=== PATIENT | male | born 1955 | race Caucasian/White ===

== ENCOUNTER 2022-12-22 14:56 | Emergency (ER) | payer OTHER ==
[2022-12-22 16:02] LABS: Potassium 4.2 mmol/L (3.5-5.1); Troponin High Sensitivity 4.8 pg/mL (<58.9)
[2022-12-22 16:06] LABS: Absolute Lymphocytes (CBC) 2.7 K/uL (0.7-4.9); Hematocrit 42.9 % (39.6-49.0); MCV 97.8 fL (80-100); MPV 8.6 fL (7.6-11.3); RBC Red Blood Cell Count 4.39 M/uL (4.33-5.43)
--- NOTE | 2022-12-22 16:36 | RAD REPORT ---
EXAM DESCRIPTION: CT - Chest For Pe Angio - 12/22/2022 4:24 pm CLINICAL HISTORY: Chest pain COMPARISON: None. TECHNIQUE: Dynamically enhanced axial 3 mm thick images of the chest were obtained during administra tion of 100 mL Isovue 370 IV contrast. Coronal and oblique reconstruction images were generated and r eviewed. Exam utilizes a protocol for optimal evaluation of pulmonary arterial tree. Maximum intensity projections 3D imaging was utilized All CT scans are performed using dose optimization technique as appropriate and may include automated exposure control or mA/KV adjustment according to patient size. FINDINGS: A pulmonary embolus is not seen. A thoracic aortic aneurysm is not noted. A pleural effusion is not seen. A pericardial effusion is not seen. A lung consolidation is not present. Mild right lower lobe atelectasis. Centrilobular emphysema IMPRESSION: Negative for a pulmonary embolism.
--- NOTE | 2022-12-22 16:37 | RAD REPORT ---
EXAM DESCRIPTION: Lanre Single View12/22/2022 3:31 pm CLINICAL HISTORY: Chest pain COMPARISON: none FINDINGS: The lungs are moderately hyperaerated. The lungs appear clear of acute infiltrate. The heart is normal size IMPRESSION: No acute abnormalities displayed
--- NOTE | 2022-12-22 18:02 | EDPHYS ---
Physician Documentation [facility] Name: Myles Verma Age: 67 yrs Sex: Male : 1955 Arrival Date: 12/22/2022 Time: 14:59 Bed 5 Private MD: ED Physician Denver Pham HPI: 12/22 17:48 This 67 yrs old Male presents to ER via EMS with complaints of Chest Pain. rn 17:48 The patient or guardian reports chest pain that is located primarily in the anterior rn chest wall. Onset: 2 month(s) ago. The pain radiates to Associated signs and symptoms: Pertinent positives: None. Pertinent negatives: abdominal pain, cough, diaphoresis, palpitations, shortness of breath, syncope, vomiting. The chest pain is described as sharp, stabbing. Duration: The patient or guardian reports multiple episodes, that are intermittent. Modifying factors: The symptoms are alleviated by nothing. the symptoms are aggravated by nothing. Severity of pain: At its worst the pain was mild in the emergency department the pain has improved. The patient has experienced similar episodes in the past. The patient has not recently seen a physician. Pt reports intermittent diffuse chest pain, sharp/stabbing, not worse with exertion or breathing. Reports sometimes worse with movement, + 50 year smoking history, no trauma. No fever. . Historical: - Allergies: 15:00 No Known Allergies; hb - PMHx: 15:00 CVA; hb - Immunization history:: Adult Immunizations up to date. - Social history:: Smoking status: Patient reports the use of cigarette tobacco products. - Family history:: not pertinent. - Hospitalizations: : No recent hospitalization is reported. ROS: 17:48 Constitutional: Negative for fever, chills, and weight loss, Eyes: Negative for injury, rn pain, redness, and discharge, Cardiovascular: Negative for palpitations, and edema Respiratory: Negative for shortness of breath, cough, wheezing Abdomen/GI: Negative for abdominal pain, nausea, vomiting, diarrhea, and constipation, MS/Extremity: Negative for injury and deformity, Skin: Negative for injury, rash, and discoloration, Neuro: Negative for headache, weakness, numbness, tingling, and seizure. Exam: 15:16 ECG was reviewed by the Attending Physician. rn 17:48 Constitutional: This is a well developed, well nourished patient who is awake, alert, rn and in no acute distress. Head/Face: Normocephalic, atraumatic. Cardiovascular: Regular rate and rhythm. No pulse deficits. Respiratory: No increased work of breathing, no retractions or nasal flaring. Abdomen/GI: Soft, non-tender Skin: Warm, dry MS/ Extremity: Pulses equal, no cyanosis. Neuro: Awake and alert, GCS 15 Vital Signs: 14:59 BP 128 / 88; Pulse 71; Resp 17; Temp 98.1; Pulse Ox 100% on R/A; Weight 65.77 kg; hb Height 5 ft. 8 in. (172.72 cm); Pain 2/10; 15:05 BP 127 / 88; Pulse 72; Resp 18; Pulse Ox 98% on R/A; ld1 15:53 BP 116 / 82; Pulse 68; Resp 18; Pulse Ox 97% on R/A; ld1 17:00 BP 116 / 85; Pulse 66; Resp 15; Pulse Ox 99% ; hb 18:01 BP 114 / 77; Pulse 68; Resp 17; Pulse Ox 99% on R/A; hb 14:59 Body Mass Index 22.05 (65.77 kg, 172.72 cm) hb MDM: 15:00 Patient medically screened. rn 17:48 Differential diagnosis: acute myocardial infarction, acute pericarditis, anxiety, rn coronary artery disease chest wall pain, costochondritis, esophagitis, gastritis, pericarditis, pleurisy, pneumothorax, pulmonary embolus, stable angina, thoracic aortic disection. HEART Score: History: Moderately Suspicious (1), ECG: Normal (0), Age: > or = 65 years (2), Risk Factors: 1 or 2 risk factors (1), Troponin: < or = 1 x Normal Limit (0), Total Score = 4. The patient was not given aspirin in the Emergency Department. Administered by EMS. Data reviewed: vital signs, nurses notes, lab test result(s), EKG, radiologic studies, plain films, and as a result, I will admit patient. Consideration of Admission/Observation Patient was admitted/placed on observation. Counseling: I had a detailed discussion with the patient and/or guardian regarding: the historical points, exam findings, and any diagnostic results supporting the discharge/admit diagnosis, lab results, radiology results, the need for further work-up and treatment in the hospital. Response to treatment: the patient's symptoms have resolved after treatment, the patient's condition has returned to base line, the patient is now symptom free, and as a result, I will discharge patient. ED course: Pt with some risk for CAD, I prefer to admit/obs for chest pain w/u, patient would like to go home, understands risks and benefits, and chooses to be discharged with cardiology f/u. CT PE neg for PE. . 12/22 15:03 Order name: Basic Metabolic Panel; Complete Time: 16:09 hb 12/22 15:03 Order name: CBC with Diff; Complete Time: 17:09 hb 12/22 15:03 Order name: Troponin HS; Complete Time: 16: hb 12/22 15:03 Order name: XRAY Chest (1 view); Complete Time: 17: hb 12/22 15:09 Order name: BNP; Complete Time: 16: rn 12/22 15:09 Order name: CT Chest For PE Angio; Complete Time: 17: rn 12/22 15:03 Order name: EKG; Complete Time: 15:04 hb 12/22 15:03 Order name: Cardiac monitoring; Complete Time: 15: hb 12/22 15:03 Order name: EKG - Nurse/Tech; Complete Time: 15: hb 12/22 15:03 Order name: IV Saline Lock; Complete Time: 15:29 hb 12/22 15:03 Order name: Labs collected and sent; Complete Time: 15:29 hb 12/22 15:03 Order name: O2 Per Protocol; Complete Time: 15: hb 12/22 15:03 Order name: O2 Sat Monitoring; Complete Time: 15:04 hb EC:16 Rate is 67 beats/min. Rhythm is regular. Right axis deviation noted. QRS is positive in rn lead aVF and negative in lead I. NC interval is normal. QRS interval is normal. QT interval is normal. No Q waves. T waves are Normal. No ST changes noted. Clinical impression: NSR w/ Non-specific ST/T Changes. Interpreted by me. Reviewed by me. Administered Medications: No medications were administered Disposition Summary: 12/22/22 18:01 Discharge Ordered Location: Home rn Problem: an ongoing problem rn Symptoms: have improved rn Condition: Stable rn Diagnosis - Chest pain, unspecified rn Followup: rn - With: Private Physician - When: As needed - Reason: Recheck today's complaints, Re-evaluation by your physician Discharge Instructions: - Discharge Summary Sheet rn - Nonspecific Chest Pain, Adult rn - Steps to Quit Smoking rn Forms: - Medication Reconciliation Form rn - Thank You Letter rn - Antibiotic chemistry intern - Prescription Opioid Use rn Signatures: Dispatcher [employer] EDDenver Smalls MD MD rn Baxter, Heather, RN RN hb Corrections: (The following items were deleted from the chart) 15:01 15:00 PMHx: Renal Insufficiency; hb hb
--- NOTE | 2022-12-22 18:02 | ER ---
Nurse's Notes [facility] Name: Myles Verma Age: 67 yrs Sex: Male : 1955 Arrival Date: 12/22/2022 Time: 14:59 Bed 5 Private MD: Diagnosis: Chest pain, unspecified Presentation: 12/22 14:59 Chief complaint: EMS states: Intermittent sharp substernal chest pain that radiates to hb left jaw x 3 days. Sent from [facility]. ASA 324 mg PO administered [employer]IAL [employer]SEUR. Coronavirus screen: At this time, the client does not indicate any symptoms associated with coronavirus-19. Ebola Screen: No symptoms or risks identified at this time. Initial Sepsis Screen: Does the patient meet any 2 criteria? No. Patient's initial sepsis screen is negative. Does the patient have a suspected source of infection? No. Patient's initial sepsis screen is negative. Risk Assessment: Do you want to hurt yourself or someone else? Patient reports no desire to harm self or others. Onset of symptoms was December 2022. 14:59 Method Of Arrival: EMS: [facility] 14:59 Acuity: ANIBAL 3 hb 15:03 Care prior to arrival: Medication(s) given: ASA, 325 mg. hb Triage Assessment: 15:00 General: Appears in no apparent distress. Behavior is calm, cooperative. Pain: Pain hb currently is 3 out of 10 on a pain scale. at worst was 9 out of 10 on a pain scale. EENT: No signs and/or symptoms were reported regarding the EENT system. Neuro: Level of Consciousness is awake, alert, obeys commands, Oriented to person, place, time, situation. Cardiovascular: Reports chest pain, Patient's skin is warm and dry. Respiratory: Respiratory effort is even, unlabored, Respiratory pattern is regular, symmetrical. GI: : No signs and/or symptoms were reported regarding the genitourinary system. Derm: Skin is pink, warm \T\ dry. Musculoskeletal: No signs and/or symptoms reported regarding the musculoskeletal system. Historical: - Allergies: 15:00 No Known Allergies; hb - PMHx: 15:00 CVA; hb - Immunization history:: Adult Immunizations up to date. - Social history:: Smoking status: Patient reports the use of cigarette tobacco products. - Family history:: not pertinent. - Hospitalizations: : No recent hospitalization is reported. Screenin:02 [facility] ED Fall Risk Assessment (Adult) Score/Fall Risk Level 0 - 2 = Low Risk hb Oriented to surroundings, Maintained a safe environment, Educated pt \T\ family on fall prevention, incl call for assistance when getting out of bed. Abuse screen: Denies threats or abuse. Denies injuries from another. Nutritional screening: No deficits noted. Tuberculosis screening: No symptoms or risk factors identified. Assessment: 15:02 General: See triage assessment. hb 15:53 Reassessment: Patient appears in no apparent distress at this time. Patient and/or hb family updated on plan of care and expected duration. Pain level reassessed. Patient is alert, oriented x 3, equal unlabored respirations, skin warm/dry/pink. 17:00 Reassessment: Patient appears in no apparent distress at this time. Patient and/or hb family updated on plan of care and expected duration. Pain level reassessed. Patient is alert, oriented x 3, equal unlabored respirations, skin warm/dry/pink. 18:01 Reassessment: Patient appears in no apparent distress at this time. Patient and/or hb family updated on plan of care and expected duration. Pain level reassessed. Patient is alert, oriented x 3, equal unlabored respirations, skin warm/dry/pink. Patient states feeling better. Vital Signs: 14:59 BP 128 / 88; Pulse 71; Resp 17; Temp 98.1; Pulse Ox 100% on R/A; Weight 65.77 kg; hb Height 5 ft. 8 in. (172.72 cm); Pain 2/10; 15:05 BP 127 / 88; Pulse 72; Resp 18; Pulse Ox 98% on R/A; ld1 15:53 BP 116 / 82; Pulse 68; Resp 18; Pulse Ox 97% on R/A; ld1 17:00 BP 116 / 85; Pulse 66; Resp 15; Pulse Ox 99% ; hb 18:01 BP 114 / 77; Pulse 68; Resp 17; Pulse Ox 99% on R/A; hb 14:59 Body Mass Index 22.05 (65.77 kg, 172.72 cm) hb ED Course: 14:59 Patient arrived in ED. hb 15:00 Denver Pham MD is Attending Physician. rn 15:00 Triage completed. hb 15:02 Patient has correct armband on for positive identification. hb 15:33 XRAY Chest (1 view) In Process Unspecified. EDMS 15:35 Initial lab(s) drawn, by me, sent to lab. Inserted saline lock: 20 gauge in left mm9 antecubital area, using aseptic technique. Blood collected. 15:36 Warm blanket given. Client placed on continuous cardiac and pulse oximetry monitoring. mm9 NIBP monitoring applied. lunchroom monitor on. Pulse ox on. NIBP on. 15:37 BNP Sent. mm9 15:37 Basic Metabolic Panel Sent. mm9 15:37 CBC with Diff Sent. mm9 15:37 Troponin HS Sent. mm9 15:53 Rochelle Scott, RN is Primary Nurse. hb 16:26 CT Chest For PE Angio In Process Unspecified. EDMS 18:44 No provider procedures requiring assistance completed. IV discontinued, intact, hb bleeding controlled, No redness/swelling at site. Administered Medications: No medications were administered Medication: 15:02 VIS not applicable for this client. hb Outcome: 18:01 Discharge ordered by . rn 18:44 Discharged to home ambulatory. hb 18:44 Condition: stable 18:44 Discharge instructions given to patient, Instructed on discharge instructions, follow up and referral plans. medication usage, Demonstrated understanding of instructions, follow-up care, medications. 18:45 Patient left the ED. hb Signatures: Dispatcher [employer] EDMS Denver Pham MD MD rn Baxter, Heather, RN RN Jennifer Casey RN RN Maddi Andersen mm9 Corrections: (The following items were deleted from the chart) 15:01 15:00 PMHx: Renal Insufficiency; hb hb
[2022-12-22 18:57] VITALS: TEMP 98.1
[2022-12-22 19:14] VITALS: O2SAT 99
[2022-12-22 19:15] VITALS: BP 114/77
== END 2022-12-22 18:45 | disposition home or self-care (01) ==
LOC: ER 14:56
DX: R07.89 Other chest pain (principal); Z86.73 Personal history of transient ischemic attack (TIA), and cerebral infarction without residual deficits; Z72.0 Tobacco use
CPT/HCPCS: 85025; 80048; 36415; 84484; 83880; 71275; 71045; 99284; Q9967; 93005

== ENCOUNTER 2022-12-25 09:30 | Observation (INO) | payer OTHER ==
--- OUTSIDE RECORDS SUMMARY | 2022-12-25 09:34 | XMS REPORT | Continuity of Care Document ---
:1955 Author Organization [facility] t Address [address] [place] [address] [address]. [address] [place] [address] Care Team Providers Name Role Phone Pcp, Patient Does Not Have A Primary Care Physician +[id number] MINDY SANTORO Attending Clinician Unavailable Mindy Santoro MD Attending Clinician Doctor Unassigned, [place] Attending Clinician Unavailable Lisandro Bobo CRNA Attending Clinician Devon Serra MD Attending Clinician Only, Adc Test Attending Clinician Unavailable Krystina Lynch Attending Clinician MINDY SANTORO Admitting Clinician Unavailable Mindy Santoro MD Admitting Clinician Payers Payer Name Policy Type Policy Number Effective Date Expiration Date Len REZA [id number] 2021 ADMINISTRATION 00:00:00 Problems Condition Condition Condition Status Onset Resolution Last Treating Co mments Source Name Details Category Date Date Treatment Clinician Date Non-recurr Non-recurr Disease Active Overview : Univers ent ent 08-17 Formattin ity of unilateral unilateral 00:00: g of this [place] inguinal inguinal 00 note Medica l hernia hernia might be Branch without without different obstructio obstructio from the n or n or original. gangrene gangrene Added automatic ally from request for surgery [id number] Allergies, Adverse Reactions, Alerts This patient has no known allergies or adverse reactions. Social History Social Habit Start Date Stop Date Quantity Comments Source History of tobacco Chews Tobacco Uni versity of use [facility] Exposure to Not sure University of SARS-CoV-2 (event) [facility] Alcohol intake 2021-10-10 2021-10-10 2 /d University of 00:00:00 00:00:00 [facility] Cigarettes smoked 2021-08-17 2021-08-17 Univers ity of current (pack per 00:00:00 00:00:00 ) - Reported Branch Tobacco use and 2021-08-17 2021-08-17 Former user Universi ty of exposure 00:00:00 00:00:00 [facility] Sex Assigned At [birth year] Universit y of 00:00:00 00:00:00 [facility] Smoking Status Start Date Stop Date Source Current some day smoker 2021-08-17 00:00:00 [facility] Medications Ordered Filled Start Stop Current Ordering Indication Dosage Frequency Signature Comments Components Source Medication Medication Date Date Medication? Clinician (SIG) Name Name No known 2020-11 No Univers medications - ity of 10:08: [address] Vital Signs Vital Name Observation Time Observation Value Comments Source Systolic blood 2021-10-10 16:08:00 132 mm[Hg] Univer sity of pressure [facility] Diastolic blood 2021-10-10 16:08:00 85 mm[Hg] Unive rsity of pressure [facility] Heart rate 2021-10-10 16:08:00 73 /min [facility] Body temperature 2021-10-10 16:08:00 36.67 [place] [facility] Respiratory rate 2021-10-10 16:08:00 20 /min [facility] Body height 2021-10-10 16:08:00 170.2 cm [facility] Body weight 2021-10-10 16:08:00 67.314 kg [facility] BMI 2021-10-10 16:08:00 23.24 kg/m2 [facility] Oxygen saturation in 2021-10-10 16:08:00 99 /min [facility] Arterial blood by [facility] Pulse oximetry Branch Procedures This patient has no known procedures. Encounters Start End Encounter Admission Attending Care Care Encounter Source Date/Time Date/Time Type Type Clinicians Facility Department ID 2021-09-20 Outpatient HAN PINTO YANE [id number] Univers 03:05:50 MINDY esparza [facility] 2021-10-10 2021-10-10 [facility] [id number] Univers 10:00:00 10:12:42 MINDY esparza [facility] 2021-10-10 2021-10-10 Office [facility] [id number] Univers 09:43:39 10:12:42 Visit Mindy LEMONSJO [id number] [id number] [phone] N[place] dical NAL [address] [place] [address] 2021-09-12 2021-09-12 Office [facility] [id number] Univers 09:58:32 10:42:06 Visit Mindy [place] [id number] [id number] [phone] Nv dical nal [address] [place] [address] 2021-09-12 2021-09-12 [facility] [id number] Univers 10:00:00 10:00:00 MINDY esparza [facility] 2021-09-01 2021-09-01 Orders Doctor VERENICE [id number] Univers 00:00:00 00:00:00 Only Unassigned, ASHWIN [id number] ity of [place] [facility] [id number] Adeel as [phone] [address] 2021-08-26 2021-08-26 Hospital [facility] [id number] Univers 07:46:00 12:15:00 Encounter Mindy Matilde [id number] [id number] [id number] [facility] [address] 2021-08-26 2021-08-26 Surgery [facility] [id number] Univers 09:30:00 12:04:00 Mindylashawn [place] [id number] [id number] [id number] [facility] [address] 2021-08-26 2021-08-26 Anesthesia Lisandro Bobo [facility] [id number] Univers 08:39:00 10:54:00 Event MaryseDevon [id number] [id number] [id number] [facility] [address] 2021-08-23 2021-08-23 Laboratory Only, Adc Test [facility] [id number] Univers 10:17:33 10:32:33 Only Mindy Santoro [id number] [id number] [id number] [facility] [address] 2021-08-23 2021-08-23 Outpatient R [facility] [id number] Univers 10:00:00 10:00:00 MINDY esparza of [facility] 2021-08-23 2021-08-23 Orders Doctor VERENICE [id number] Univers 00:00:00 00:00:00 Only Unassigned, ASHWIN [id number] ity of [place] [facility] [id number] Adeel as [phone] [facility] [address] 2021-08-23 2021-08-23 Telephone Yvan [facility] [id number] Univers 00:00:00 00:00:00 Mindy [place] [id number] [id number] [phone] N[place] dical nal [address] [facility] 2021-08-17 2021-08-17 Office Yvan [facility] [id number] Univers 13:05:39 14:23:17 Visit Mindy [place] [id number] [id number] [phone] N[place] dical nal [address] [facility] 2021-08-17 2021-08-17 Outpatient R [facility] [id number] Univers 13:00:00 13:00:00 MINDY esparza [facility] 2021-08-17 2021-08-17 [facility] [id number] Univers 00:00:00 00:00:00 Surgery Krystina [place] [id number] [place] [id number] Sae Quiñonez [phone] Nv dical nal [address] [facility] Results This patient has no known results.
[2022-12-25 11:45] LABS: Albumin 3.9 g/dL (3.4-5.0); Bilirubin Direct 0.1 mg/dL (0-0.2); Bilirubin Total 0.5 mg/dL (0.2-1.0); Potassium 4.3 mmol/L (3.5-5.1); Protein, Total 7.7 g/dL (6.4-8.2); Troponin High Sensitivity 6.3 pg/mL (<58.9)
[2022-12-25 11:49] LABS: Absolute Lymphocytes (CBC) 2.9 K/uL (0.7-4.9); Hematocrit 44.5 % (39.6-49.0); Lymphocytes % 26.5 % (15.3-44.8); MCV 96.9 fL (80-100); MPV 8.6 fL (7.6-11.3); RBC Red Blood Cell Count 4.59 M/uL (4.33-5.43)
[2022-12-25 11:59] LABS: Protime INR 0.97
--- NOTE | 2022-12-25 12:47 | EDPHYS ---
Physician Documentation [facility] Name: Myles Verma Age: 67 yrs Sex: Male : 1955 Arrival Date: 12/25/2022 Time: 09:35 Bed 26 Private MD: ED Physician Margaret Alvarez HPI: 12/25 12:28 This 67 yrs old Male presents to ER via Ambulatory with complaints of Chest Pain. sp3 12:28 67-year-old male with a history of CVA currently on no medications and no primary care sp3 physician presents again for recurrent chest pain. Patient states he has had chest pain off and on for over a week now and feels like it is something new. He was seen here 3 days ago and offered admission but was discharged from the ER after he respectfully declined. He was seen that time by Dr. Pham please see his note. Currently he denies having chest pain, shortness of breath, back pain, abdominal pain, nausea, vomiting, diarrhea, fever, URI symptoms, syncope, near syncope, focal neurological deficit, or any other signs or symptoms at this time.. Historical: - Allergies: 09:57 No Known Allergies; ph - PMHx: 09:57 CVA; ph - Immunization history:: Adult Immunizations unknown. - Social history:: Smoking status: Patient reports the use of cigarette tobacco products, smokes one-half pack cigarettes per day. ROS: 12:29 Constitutional: Negative for fever, chills, and weight loss, Eyes: Negative for injury, sp3 pain, redness, and discharge, ENT: Negative for injury, pain, and discharge, Neck: Negative for injury, pain, and swelling, Respiratory: Negative for shortness of breath, cough, wheezing, and pleuritic chest pain, Abdomen/GI: Negative for abdominal pain, nausea, vomiting, diarrhea, and constipation, Back: Negative for injury and pain, : Negative for injury, bleeding, discharge, and swelling, MS/Extremity: Negative for injury and deformity, Skin: Negative for injury, rash, and discoloration, Neuro: Negative for headache, weakness, numbness, tingling, and seizure, Psych: Negative for depression, anxiety, suicide ideation, homicidal ideation, and hallucinations, Allergy/Immunology: Negative for hives, rash, and allergies, Endocrine: Negative for neck swelling, polydipsia, polyuria, polyphagia, and marked weight changes. 12:29 All other systems are negative. Exam: 12:29 Constitutional: This is a well developed, well nourished patient who is awake, alert, sp3 and in no acute distress. Head/Face: Normocephalic, atraumatic. Eyes: Pupils equal round and reactive to light, extra-ocular motions intact. Lids and lashes normal. Conjunctiva and sclera are non-icteric and not injected. Cornea within normal limits. Periorbital areas with no swelling, redness, or edema. ENT: Nares patent. No nasal discharge, no septal abnormalities noted. External auditory canals are clear. Oropharynx with no redness, swelling, or masses, exudates, or evidence of obstruction, uvula midline. Mucous membranes moist. Neck: Trachea midline, no thyromegaly or masses palpated, and no cervical lymphadenopathy. Supple, full range of motion without nuchal rigidity, or vertebral point tenderness. No Meningismus. Chest/axilla: Normal chest wall appearance and motion. Nontender with no deformity. No lesions are appreciated. Cardiovascular: Regular rate and rhythm with a normal S1 and S2. No gallops, murmurs, or rubs. Normal PMI, no JVD. No pulse deficits. Respiratory: Lungs have equal breath sounds bilaterally, clear to auscultation and percussion. No rales, rhonchi or wheezes noted. No increased work of breathing, no retractions or nasal flaring. Abdomen/GI: Soft, non-tender, with normal bowel sounds. No distension or tympany. No guarding or rebound. No evidence of tenderness throughout. Back: No spinal tenderness. No costovertebral tenderness. Full range of motion. Skin: Warm, dry with normal turgor. Normal color with no rashes, no lesions, and no evidence of cellulitis. MS/ Extremity: Pulses equal, no cyanosis. Neurovascular intact. Full, normal range of motion. Neuro: Awake and alert, GCS 15, oriented to person, place, time, and situation. Cranial nerves II-XII grossly intact. Motor strength 5/5 in all extremities. Sensory grossly intact. Cerebellar exam normal. Normal gait. Psych: Awake, alert, with orientation to person, place and time. Behavior, mood, and affect are within normal limits. 12:29 ECG was reviewed by the Attending Physician. EKG demonstrates normal sinus rhythm at 62 bpm with normal intervals, normal axis, normal QRS, nonspecific diffuse ST/T changes without evidence of acute ischemia. Vital Signs: 09:54 BP 116 / 76; Pulse 80; Resp 18; Temp 97.9; Pulse Ox 97% on R/A; Weight 66.68 kg; Height ph 5 ft. 8 in. (172.72 cm); 12:15 BP 128 / 80; Pulse 72; Resp 20; Temp 97.9(O); Pulse Ox 95% on R/A; eh3 13:15 BP 113 / 83; Pulse 68; Resp 17; Pulse Ox 96% on R/A; eh3 14:15 BP 124 / 85; Pulse 81; Resp 15; Pulse Ox 99% on R/A; eh3 12/26 00:58 BP 110 / 71; Pulse 62; Resp 14; Temp 98.1; Pulse Ox 95% on R/A; Pain 0/10; rv1 12/25 09:54 Body Mass Index 22.35 (66.68 kg, 172.72 cm) ph MDM: 12/25 11:14 Patient medically screened. sp3 12:30 Data reviewed: vital signs, nurses notes, old medical records, lab test result(s), EKG, sp3 radiologic studies. ED course: 67-year-old male with recurrent chest pain. Differential diagnosis includes acute coronary syndrome, pneumonia, pneumothorax among others. Clinically ruled out pulmonary embolism, thoracic pathology including dissection and aneurysm, URI/infectious etiology, sepsis, shock. EKG and laboratory values reviewed which demonstrate no acute abnormality. Given his recurrent symptoms and 72-hour return, we will observe patient with cardiology consultation and further work-up as needed.. 12/25 10:32 Order name: Basic Metabolic Panel; Complete Time: 12: 3 12/25 10:32 Order name: CBC with Diff; Complete Time: 12: sp3 12/25 10:32 Order name: LFT's; Complete Time: 12: sp3 12/25 10:32 Order name: NT PRO-BNP; Complete Time: 12: 3 12/25 10:32 Order name: PT-INR; Complete Time: 12: 3 12/25 10:32 Order name: Troponin HS; Complete Time: 12: sp3 12/25 14:45 Order name: SARS-COV-2 Antigen Rapid 12/25 15:28 Order name: SARS-COV-2 Antigen Rapid EDMS 12/25 15:40 Order name: Hemoglobin A1c EDMS 12/25 15:59 Order name: Phosphorus EDMS 12/25 15:59 Order name: T4 Free EDMS 12/25 15:59 Order name: Magnesium EDMS 12/25 15:59 Order name: Thyroid Stimulating Hormone EDMS 12/25 16:05 Order name: Lipid Profile EDTN 12/25 10:32 Order name: XRAY Chest (1 view) 3 12/25 10:32 Order name: EKG; Complete Time: 10:33 3 12/25 10:32 Order name: Cardiac monitoring; Complete Time: 12:18 3 12/25 10:32 Order name: EKG - Nurse/Tech; Complete Time: 11:19 3 12/25 10:32 Order name: IV Saline Lock; Complete Time: 11:19 3 12/25 10:32 Order name: Labs collected and sent; Complete Time: 11:19 3 12/25 10:32 Order name: O2 Per Protocol; Complete Time: 12:18 3 12/25 10:32 Order name: O2 Sat Monitoring; Complete Time: 12:18 3 12/25 11:30 Order name: Labs - recollect needed: recollect blue top, fill to line; Complete Time: bd 11:53 12/25 13:06 Order name: Diet Heart Healthy; Complete Time: 13:07 3 12/25 18:34 Order name: D-Dimer [facility] 12/25 19:10 Order name: Troponin High Sensitivity EDTN 12/25 23:52 Order name: Troponin High Sensitivity EDTN 12/26 02:58 Order name: CBC with Automated Diff EDMS 12/26 03:00 Order name: Basic Metabolic Panel EDMS Administered Medications: No medications were administered Disposition Summary: 12/25/22 12:46 Hospitalization Ordered Hospitalization Status: Observation sp3 Provider: Chang Rider sp3 Condition: Stable sp3 Problem: new sp3 Symptoms: have worsened sp3 Bed/Room Type: Standard sp3 Location: Telemetry/MedSurg (observation)(12/26/22 02:22) cg Room Assignment: [facility](12/26/22 02:22) cg Diagnosis - Chest pain, recurrent sp3 Forms: - Medication Reconciliation Form sp3 - SBAR form sp3 Signatures: Dispatcher [employer] EDSunshine Nielsen [place], RN RN Idalia Shukla RN RN Shannan Gomez RN RN Margaret Alvarez MD MD sp3 Corrections: (The following items were deleted from the chart) 17:53 12:46 Telemetry/MedSurg (observation) sp3 17:53 12:46 sp3 12/26 02:22 12/25 17:53 [facility] ER HOLD ss 12/26 02:22 12/25 17:53 ERHOLD- [facility] [place], [place]
--- NOTE | 2022-12-25 12:47 | ER ---
Nurse's Notes [facility] Name: Myles Verma Age: 67 yrs Sex: Male : 1955 Arrival Date: 12/25/2022 Time: 09:35 Bed 26 Private MD: Diagnosis: Chest pain, recurrent Presentation: 12/25 09:54 Chief complaint: Patient states: SOB and off and on R sided chest pain x " a couple of ph months" that has gotten worse over the last few weeks. Was seen in ED last Sunday for same complaint, was admitted to hospital, reports that nothing abnormal was found and states that he was instructed to follow up w/ cashier supervisor. Coronavirus screen: Vaccine status: Patient reports being unvaccinated. Ebola Screen: No symptoms or risks identified at this time. Initial Sepsis Screen: Does the patient meet any 2 criteria? No. Patient's initial sepsis screen is negative. Does the patient have a suspected source of infection? No. Patient's initial sepsis screen is negative. Risk Assessment: Do you want to hurt yourself or someone else? Patient reports no desire to harm self or others. Onset of symptoms was December 25, 2022. 09:54 Method Of Arrival: Ambulatory ph 09:54 Acuity: ANIBAL 3 ph Triage Assessment: 09:57 General: Appears in no apparent distress. comfortable, Behavior is calm, cooperative, ph appropriate for age. Pain: Complains of pain in anterior aspect of right upper chest. Cardiovascular: Reports chest pain, shortness of breath. Historical: - Allergies: 09:57 No Known Allergies; ph - PMHx: 09:57 CVA; ph - Immunization history:: Adult Immunizations unknown. - Social history:: Smoking status: Patient reports the use of cigarette tobacco products, smokes one-half pack cigarettes per day. Screenin:17 [facility] ED Fall Risk Assessment (Adult) History of falling in the last 3 months, ph including since admission No falls in past 3 months (0 pts) Confusion or Disorientation No (0 pts) Intoxicated or Sedated No (0 pts) Impaired Gait No (0 pts) Mobility Assist Device Used No (0 pt) Altered Elimination No (0 pt) Score/Fall Risk Level 0 - 2 = Low Risk. Abuse screen: Denies threats or abuse. Denies injuries from another. Nutritional screening: No deficits noted. Tuberculosis screening: No symptoms or risk factors identified. Assessment: 12:15 General: Appears in no apparent distress. comfortable, Behavior is calm, cooperative, eh3 appropriate for age. Pain: Complains of pain in anterior aspect of right upper chest Pain does not radiate. Pain began m. Neuro: Level of Consciousness is awake, alert, obeys commands, Oriented to person, place, time, situation. Cardiovascular: Capillary refill < 3 seconds Patient's skin is warm and dry. Rhythm is regular. GI: Abdomen is round non-distended. : No signs and/or symptoms were reported regarding the genitourinary system. EENT: No signs and/or symptoms were reported regarding the EENT system. 12:15 Respiratory: Airway is patent Respiratory effort is even, unlabored, Respiratory eh3 pattern is regular, symmetrical. Derm: No signs and/or symptoms reported regarding the dermatologic system. Skin is pink, warm \\T\\ dry. Musculoskeletal: No signs and/or symptoms reported regarding the musculoskeletal system. Circulation, motion, and sensation intact. Range of motion: intact in all extremities. 13:15 Reassessment: Patient appears in no apparent distress at this time. Patient and/or 3 family updated on plan of care and expected duration. Pain level reassessed. Patient is alert, oriented x 3, equal unlabored respirations, skin warm/dry/pink. 14:15 Reassessment: Patient appears in no apparent distress at this time. Patient and/or eh3 family updated on plan of care and expected duration. Pain level reassessed. Patient is alert, oriented x 3, equal unlabored respirations, skin warm/dry/pink. Vital Signs: 09:54 BP 116 / 76; Pulse 80; Resp 18; Temp 97.9; Pulse Ox 97% on R/A; Weight 66.68 kg; Height ph 5 ft. 8 in. (172.72 cm); 12:15 BP 128 / 80; Pulse 72; Resp 20; Temp 97.9(O); Pulse Ox 95% on R/A; eh3 13:15 BP 113 / 83; Pulse 68; Resp 17; Pulse Ox 96% on R/A; eh3 14:15 BP 124 / 85; Pulse 81; Resp 15; Pulse Ox 99% on R/A; eh3 12/26 00:58 BP 110 / 71; Pulse 62; Resp 14; Temp 98.1; Pulse Ox 95% on R/A; Pain 0/10; rv1 02 09:54 Body Mass Index 22.35 (66.68 kg, 172.72 cm) ph Vitals: 02 12:15 Cardiac Rhythm Assessment Sinus rhythm. eh3 ED Course: 09:35 Patient arrived in ED. rg4 09:37 Margaret Alvarez MD is Attending Physician. sp3 09:57 Triage completed. ph 09:58 Arm band placed on Patient placed in waiting room, Patient notified of wait time. ph 11:19 Basic Metabolic Panel Sent. bc6 11:19 CBC with Diff Sent. bc6 11:19 LFT's Sent. bc6 11:19 NT PRO-BNP Sent. bc6 11:19 PT-INR Sent. bc6 11:19 Troponin HS Sent. bc6 11:19 Initial lab(s) drawn, by me, sent to lab. EKG done, by ED staff. Inserted saline lock: bc6 20 gauge in left antecubital area, using aseptic technique. 12:02 Dorita Shukla, RN is Primary Nurse. eh3 12:15 Patient has correct armband on for positive identification. Placed in gown. Bed in low eh3 position. Call light in reach. Side rails up X2. Client placed on continuous cardiac and pulse oximetry monitoring. NIBP monitoring applied. Door closed. Noise minimized. Lights dimmed. Warm blanket given. 12:15 Patient maintains SpO2 saturation greater than 95% on room air. eh3 12:46 Chang Rider MD is Hospitalizing Provider. sp3 13:08 XRAY Chest (1 view) In Process Unspecified. EDMS 14:51 SARS-COV-2 Antigen Rapid Sent. eh3 15:00 No provider procedures requiring assistance completed. Patient admitted, IV remains in eh3 place. Administered Medications: No medications were administered Medication: 15:00 VIS not applicable for this client. eh3 Outcome: 12:46 Decision to Hospitalize by Provider. sp3 15:00 Admitted to ER Hold. Please see [facility] for further documentation. eh3 15:00 Condition: stable 15:00 Instructed on the need for admit. 12/26 05:15 Patient left the ED. bb Signatures: Dispatcher [facility] Amaya Peres RN RN Idalia Mares, RN RN cheng Gomez, Perla rg4 Margaret Alvarez MD MD sp3 Dorita Shukla RN RN 3 Diandra Moore rv1 Suha Lepe [facility] Corrections: (The following items were deleted from the chart) 12/25 11:21 11:19 Inserted saline lock: 20 gauge in right antecubital area, using aseptic 6 technique. [facility] 13:13 12:15 Respiratory: Reports cough that is productive, with thick hamm mucus, pain with eh3 cough Airway is patent Respiratory effort is even, unlabored, Respiratory pattern is regular, symmetrical, 3 13:13 12:15 Derm: Skin is fragile, is thin, eh3 3 13:13 12:15 Musculoskeletal: Circulation, motion, and sensation intact. Range of motion: eh3 intact in all extremities, Swelling present in right foot and left foot eh3
--- NOTE | 2022-12-25 13:16 | RAD REPORT ---
EXAM DESCRIPTION: Lanre Single View12/25/2022 1:06 pm CLINICAL HISTORY: Chest pain COMPARISON: December 22, 2022 FINDINGS: The lungs are moderately hyperaerated. The lungs appear clear of acute infiltrate. The heart is normal size IMPRESSION: No acute abnormalities displayed
[2022-12-25] MEDS ORDERED: ACETAMINOPHEN 325 MG TABLET PO PRN (14:23)
[2022-12-25] MEDS ORDERED: ONDANSETRON 4 MG/2 ML VIAL IV PRN (14:27)
[2022-12-25] MEDS ORDERED: TRAMADOL HCL 50 MG TAB PO PRN (14:27)
[2022-12-25] MEDS ORDERED: ASPIRIN 81 MG CHEWABLE TABLET PO ONE (14:29)
--- NOTE | 2022-12-25 14:32 | P.HP ---
Certification for Inpatient Patient admitted to: Observation With expected LOS: <2 Midnights Patient will require the following post-hospital care: None Practitioner: I am a practitioner with admitting privileges, knowledge of patient current condition, hospital course, and medical plan of care. Services: Services provided to patient in accordance with Admission requirements found in Title 42 Section 412.3 of the Code of Federal Regulations Patient History Date of Service: 12/25/22 Reason for admission: Chest pain History of Present Illness: Patient is a 67-year-old male with a past medical history significant for CVA, nicotine dependence who presents with complaint of chest pain located in the right chest wall. Patient reported that he has been having intermittent chest pain for the past 8 months. Patient was seen in the ER 3 days ago for similar complaint and patient declined admission. Patient reported that he started experiencing chest pain again yesterday and chest pain continued today. Patient rated pain as 9/10 in severity and described pain as sharp\stabbing in quality. Patient indicated that chest pain radiates to his left neck area. Patient reported associated signs and symptoms of shortness of breath and dizziness. Patient denies any other signs or symptoms. Symptoms are aggravated or relieved by nothing. Patient decided to present to the hospital due to worsening symptoms. Allergies No Known Allergies Allergy (Unverified 12/25/22 14:46) - Past Medical/Surgical History -: CVA -: Nicotine dependence Past Surgical History: Reviewed- Non-Contributory - Family History Family History: Reviewed- Non-Contributory - Social History Smoking Status: Current every day smoker Counseled patient to stop smoking for: less than 10 minutes Smoking therapy provided: Yes Patient receptive to therapy: Yes Alcohol use: Yes CD- Drugs: No Caffeine use: Yes Place of Residence: Home Review of Systems General: Unremarkable Eyes: Unremarkable ENT: Unremarkable Respiratory: Shortness of Breath Cardiovascular: Chest Pain Gastrointestinal: Unremarkable Genitourinary: Unremarkable Musculoskeletal: Neck Pain Integumentary: Unremarkable Neurological: Other (Dizziness) Lymphatics: Unremarkable Physical Examination - Physical Exam General: Alert, In no apparent distress, Oriented x3, Cooperative HEENT: Atraumatic, PERRLA, Mucous membr. moist/pink, EOMI, Sclerae nonicteric Neck: Supple, 2+ carotid pulse no bruit, No LAD, Without JVD or thyroid abnormality Respiratory: Clear to auscultation bilaterally, Normal air movement Cardiovascular: No edema, Regular rate/rhythm, Normal S1 S2 Capillary refill: <2 Seconds Gastrointestinal: Normal bowel sounds, Soft and benign, No tenderness Musculoskeletal: No clubbing, No swelling, No contractures, No tenderness Integumentary: No rashes, No significant lesion, No tenderness/swelling Neurological: Normal speech, Normal tone, Normal affect Lymphatics: No axilla or inguinal lymphadenopathy - Studies Laboratory Data (last 24 hrs) 12/25/22 11:50: PT 10.7, INR 0.97 12/25/22 11:20: WBC 10.80, Hgb 15.4, Hct 44.5, Plt Count 280 12/25/22 11:20: Sodium 139, Potassium 4.3, BUN 19 H, Creatinine 1.22, Glucose 95, Total Bilirubin 0.5, AST 19, ALT 21, Alkaline Phosphatase 84 Assessment and Plan - Plan --Chest pain. To rule out ACS. Cardiology consulted. We will trend serial troponins--negative so far. Telemetry to monitor for any significant arrhythmia. Echocardiogram pending to assess cardiac functions and structures. Telemetry to monitor for any significant arrhythmia. --History of CVA. Continue aspirin and statin. --Nicotine dependence. Patient counseled on tobacco cessation and placed on nicotine patch. --Alcohol abuse. Patient denies withdrawal symptoms when he does not drinks. [facility] protocol --CKD 2. Stable. We will continue to monitor renal functions. --Acute pain. We will manage pain with current pain medication regimen. --DVT prophylaxis with Lovenox subQ. Discharge Plan: Home Plan to discharge in: 48 Hours - Advance Directives Does patient have a Living Will: No Does patient have a Durable POA for Healthcare: No - Code Status/Comfort Care Code Status Assessed: Yes Physician Review: Patient Assessed, Agree with Above Assessment and Plan Critical Care: No
[2022-12-25] MEDS: ENOXAPARIN 40 MG/0.4 ML SQ SCH (15:00)
[2022-12-25] MEDS ORDERED: ENOXAPARIN 40 MG/0.4 ML SQ ONE (15:03)
[2022-12-25] MEDS ORDERED: ASPIRIN 81 MG CHEWABLE TABLET ONE (15:03)
[2022-12-25 15:27] LABS: SARS-CoV-2 Antigen Rapid Res Negative (Negative)
[2022-12-25 15:59] LABS: Magnesium 2.3 mg/dL (1.6-2.4); Phosphorus 3.2 mg/dL (2.5-4.9); Thyroid Stimulating Hormone 3.68 uIU/mL (0.358-3.740)
[2022-12-25 18:16] VITALS: BMI 22.3
[2022-12-25] MEDS ORDERED: ATORVASTATIN 40 MG TAB PO SCH (21:00)
[2022-12-25] MEDS ORDERED: ATORVASTATIN 20 MG TAB ONE (23:22)
[2022-12-26 02:48] LABS: Absolute Lymphocytes (CBC) 4.5 K/uL (0.7-4.9); Hematocrit 43.1 % (39.6-49.0); Lymphocytes % 39.7 % (15.3-44.8); MCV 97.9 fL (80-100); MPV 8.6 fL (7.6-11.3); RBC Red Blood Cell Count 4.41 M/uL (4.33-5.43)
[2022-12-26 02:59] LABS: Potassium 3.7 mmol/L (3.5-5.1)
[2022-12-26 06:01] VITALS: O2SAT 95
[2022-12-26] MEDS ORDERED: PNEUMOCOCCAL VACCINE 0.5 ML IMVAC ONE (09:00)
[2022-12-26] MEDS: ENOXAPARIN 40 MG/0.4 ML SQ SCH (09:00)
[2022-12-26] MEDS ORDERED: NICOTINE 14 MG/PAT TD SCH (09:00)
[2022-12-26] MEDS ORDERED: INFLUENZA VACCINE (for 6+ mo) 0.5 ML DOSE IMVAC ONE (09:00)
[2022-12-26] MEDS ORDERED: ASPIRIN 81 MG CHEWABLE TABLET PO SCH (09:00)
[2022-12-26] MEDS ORDERED: REGADENOSON 0.4 MG/5 ML SYR IV ONE (09:31)
[2022-12-26 13:00] VITALS: BP 118/73; TEMP 97.8
--- NOTE | 2022-12-26 13:25 | RAD REPORT ---
EXAM DESCRIPTION: NM - Rest Stress Cardiac Imaging - 12/26/2022 1:20 pm CLINICAL HISTORY: CP Chest pain. COMPARISON: No comparisons TECHNIQUE: The patient was administered approximately 10mCi of Tc 99m Sestamibi prior to resting SPE CT imaging of the heart. The patient was then administered approximately 30 mCi of Tc 99m Sestamibi f ollowing exercise or pharmacologic stress. Multiplanar SPECT images were reviewed. FINDINGS: No stress induced ischemic defect is seen to suggest stress induced ischemia. No fixed def ect is seen to suggest hibernating myocardium or scarred myocardium. The end diastolic volume is 76 ml, the end systolic volume is 18 ml, and the ejection fraction is 76 %. IMPRESSION: No stress induced ischemia.
--- NOTE | 2022-12-26 18:50 | CON ---
Date of Consultation: 12/26/2022 Reason For Consultation: Chest pain. History Of Present Illness: A 67-year-old male, history of CVA, active smoker, presented with chest pain to the right side of the chest, not related to exertion, intermittent for the past 8 months. No shortness of breath. Pain can get to high level 9/10. No nausea, vomiting, or diaphoresis. Past Medical History: As outlined above in the HPI. Medications: Refer to reconciliation sheet for detailed list. Allergies: NO KNOWN DRUG ALLERGIES. Family History: No premature coronary artery disease or cancer. Social History: He is an active smoker, about a pack per day. Does not drink or use any drugs. Review of Systems: All systems reviewed and they were negative except what mentioned in HPI. Physical Examination: Vital Signs: Reviewed. Head and Neck: Pupils are equal, reactive to light. Intact eye movements. No JVD. No cervical lym phadenopathy. Neck is supple. Thyroid is not enlarged. Lungs: Clear to auscultation bilaterally. No rhonchi, wheezing, or crackles. No accessory muscle u se. Heart: Regular rate and rhythm. No extra sounds. Abdomen: Soft, nontender. Bowel sounds positive. No organomegaly. No masses or hernia. No rigidi ty or rebound. Extremities: No edema, clubbing, or cyanosis. Intact pulses. Skin: No rash. Neurologic: Alert, awake, oriented x3. No acute focal deficits appreciated. Investigations: Three sets troponins are negative. BUN 21, creatinine 1.1. Assessment And Recommendation: 1.Chest pain. It is atypical. First set of cardiac enzymes is negative. Do 2 more sets and if he rules out, the patient can be released to follow up as an outpatient with stress test and an echo. 2.Active smoker. He was counseled against smoking. SR/MODL Voice ID: [id number] Report ID: [id number]
--- NOTE | 2022-12-26 19:35 | PN ---
Date of Progress Note: 12/26/2022 Subjective: Seen at bedside, doing clinically well. Does not have any chest pain, shortness of garcia th, orthopnea, cough. No nausea, vomiting, diarrhea. All other systems reviewed are negative. Objective: Vital Signs: Reviewed. Head and Neck: Pupils are equal, reactive to light. Intact eye movements. No JVD. No cervical lym phadenopathy. Neck: Supple. Thyroid is not enlarged. Lungs: Clear to auscultation bilaterally. No rhonchi, rales, or crackles. No accessory muscle use. Heart: Regular rate and rhythm. No extra sounds. Abdomen: Soft, nontender. Bowel sounds positive. No organomegaly. No masses or hernia. No rigidi ty or rebound. Extremities: No edema, clubbing, cyanosis. Intact pulses. Skin: No rashes. Neurologic: Alert, awake, oriented x3. No acute focal deficits appreciated. Investigations: 3 sets of cardiac enzymes are negative. Assessment/recommendations: 1.Chest pain. Cardiac enzymes are negative. Pain is typical. Patient can be released and we will have him follow up as an outpatient with stress test and an echocardiogram. 2.Active smoker. He was counseled again and patient is planning to quit. /MODL Voice ID: [id number] Report ID: [id number]
--- NOTE | 2022-12-27 07:00 | ECHO ---
HEIGHT: 5 ft 8 in WEIGHT: 147 lb 0.068 oz DATE OF STUDY: 12/26/[address]: Jamie Levi 2-DIMENSIONAL: YES M.MODE: YES DOPPLER: YES COLOR FLOW: YES TDS: YES PORTABLE: YES DEFINITY: BUBBLE STUDY: DIAGNOSIS: CHEST PAIN CARDIAC HISTORY: CATHERIZATION: SURGERY: PROSTHETIC VALVE: PACEMAKER: MEASUREMENTS (cm) DIASTOLIC (NORMALS) SYSTOLIC (NORMALS) IVSd 0.9 (0.6-1.2) LA Diam 3.0 (1.9-4.0) LVEF 62% LVIDd 3.6 (3.5-5.7) LVIDs 2.4 (2.0-3.5) %FS 33% LVPWd 0.8 (0.6-1.2) Ao Diam 2.9 (2.0-3.7) 2 DIMENSIONAL ASSESSMENT: RIGHT ATRIUM: NORMAL LEFT ATRIUM: NORMAL RIGHT VENTRICLE: NORMAL LEFT VENTRICLE: NORMAL TRICUSPID VALVE: MILD TRICUSPID REGURGITATION MITRAL VALVE: NORMAL PULMONIC VALVE: NORMAL AORTIC VALVE: NORMAL PERICARDIAL EFFUSION: NONE AORTIC ROOT: NORMAL LEFT VENTRICULAR WALL MOTION: NORMAL DOPPLER/COLOR FLOW: MILD TRICUSPID REGURGITATION COMMENTS: 1. NORMAL LEFT VENTRICULAR EJECTION FRACTION 55-60% 2. NORMAL WALL MOTION 3. MILD TRICUSPID REGURGITATION TECHNOLOGIST: DAVONTE DEMARCO
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
== END 2022-12-26 16:22 | disposition home or self-care (01) ==
LOC: ER 09:30 → ERHOLD 14:21 → 2ND 12-26 02:23
PROVIDERS: ADMIT Hospitalist; ATTEND Hospitalist
DX: R07.89 Other chest pain (principal); F17.210 Nicotine dependence, cigarettes, uncomplicated; F10.10 Alcohol abuse, uncomplicated; N18.2 Chronic kidney disease, stage 2 (mild); Z71.6 Tobacco abuse counseling; Z86.73 Personal history of transient ischemic attack (TIA), and cerebral infarction without residual deficits; Z20.822 Contact with and (suspected) exposure to COVID-19; Z23 Encounter for immunization
CPT/HCPCS: 93005; 93017; 93306; 85025 ×2; 80048 ×2; 36415 ×2; 83735; 84100; 85610; 80061; 85379; 80076; 84443; 83036; 84484 ×3; 84439; 83880; 71045; 78452; 87811; J1650; J2785; A9500; G0378